=== PATIENT | female | born 1985 | race Caucasian/White ===

== ENCOUNTER 2022-07-04 05:33 | Outpatient (CLI) | payer MEDICAID ==
[~2022-07-04] VITALS: Ht 167.7 cm; Wt 90.9 kg
== END 2022-07-08 13:58 | disposition home or self-care (01) ==
LOC: PREOP 05:33
PROVIDERS: ATTEND Otolaryngology Otolaryngology/Facial Plastic Surgery
DX: Z01.818 Encounter for other preprocedural examination (principal)

== ENCOUNTER 2022-07-12 06:39 | Day surgery (SDC) | payer MEDICAID ==
[2022-07-12] VITALS (11 sets, daily range): BP systolic 145–178; BP diastolic 93–114
[~2022-07-12] VITALS: Ht 167.7 cm; Wt 90.9 kg
[2022-07-12] MEDS ORDERED: LACTATED RINGERS 1,000 ML IV PRN (06:45)
--- NOTE | 2022-07-12 07:00 | Progress Note-Pre Operative ---
Pre-Operative Progress Note Date of Available H&P: Jul 12, 2022 Date H&P Reviewed: Jul 12, 2022 Time H&P Reviewed: 07:00 History & Physical: H&P Reviewed, Patient Examed, No changes noted Changes from last HP none Pre-Operative Diagnosis: Rec Tons/ Chronic Tonsil Stones DAMION FU MD Jul 12, 2022 07:00
--- NOTE | 2022-07-12 07:01 | Progress Note-Post Operative ---
Post-Operative Progess Note Surgeon (s)/Hand Stitcher (s) Surgeon DAMION FU MD Hand Stitcher n/a Pre-Operative Diagnosis Rec Tons/ Chronic Tonsil Stones Post-Operative Diagnosis same Post-Op Procedure Note Date of Procedure: Jul 12, 2022 Name of Procedure Performed: Tonsillectomy Description & Findings Description and Findings: n/a Anesthesia Type get Estimated Blood Loss minimal Packing none. Specimen(s) collected/removed tonsils DAMION FU MD Jul 12, 2022 07:01
[2022-07-12 07:15] LABS: BASOPHILS % (AUTO) 0 % (0-10); EOSINOPHILS # (AUTO) 0.1 10^3/uL (0.0-0.3); EOSINOPHILS % (AUTO) 1 % (0-10); HEMATOCRIT 41 % (35-52); HEMOGLOBIN 13.8 g/dL (11.5-16.0); LYMPHOCYTES # (AUTO) 1.6 10^3/uL (1.0-4.0); LYMPHOCYTES % (AUTO) 26 % (12-44); MEAN CORPUSCULAR HEMOGLOBIN 30 pg (25-34); MEAN CORPUSCULAR HGB CONC 34 g/dL (32-36); MEAN CORPUSCULAR VOLUME 89 fL (80-99); MEAN PLATELET VOLUME 10.5 fL (9.0-12.2); MONOCYTES # (AUTO) 0.5 10^3/uL (0.0-1.0); MONOCYTES % (AUTO) 8 % (0-12); NEUTROPHILS # (AUTO) 4.1 10^3/uL (1.8-7.8); NEUTROPHILS % (AUTO) 64 % (42-75); PLATELET COUNT 298 10^3/uL (130-400); WHITE BLOOD COUNT 6.4 10^3/uL (4.3-11.0)
[2022-07-12] MEDS ORDERED: NS IV 1000 ML 1,000 ML IV SCH (07:15)
[2022-07-12] MEDS ORDERED: APAP 325 MG/10.15 ML LIQ (TYLENOL) UDC PO PRN (07:15)
[2022-07-12] MEDS ORDERED: MIDAZOLAM 2 MG/2 ML (VERSED) VIAL ONE ×2 (07:22→07:45)
[2022-07-12] MEDS ORDERED: MIDAZOLAM 2 MG/2 ML (VERSED) VIAL IV ONE (07:30)
[2022-07-12] MEDS ORDERED: fentaNYL INJ 100 MCG/2 ML AMP ONE (07:45)
[2022-07-12] MEDS ORDERED: proPOfol 200 MG/20 ML (DIPRIVAN) VIAL IV ONE (07:59)
[2022-07-12] MEDS ORDERED: LIDOCAINE PF 2% 5 ML (XYLOCAINE) VIAL ONE (07:59)
[2022-07-12] MEDS ORDERED: SEVOFLURANE (ULTANE) 15 ML INHAL SOLN ONE (07:59)
[2022-07-12] MEDS ORDERED: ONDANSETRON 4 MG/2 ML (SDV) Z0FRAN ONE (07:59)
[2022-07-12] MEDS ORDERED: ROCURONIUM 50 MG/5 ML (ZEMURON) VIAL IV ONE (07:59)
--- NOTE | 2022-07-12 08:17 | Anesthesia-General Post-Op ---
General Patient Condition Mental Status/LOC: Same as Preop Cardiovascular: Satisfactory Nausea/Vomiting: Absent Respiratory: Satisfactory Pain: Controlled Complications: Absent Post Op Complications Complications None Follow Up Care/Instructions Patient Instructions None needed. Anesthesia/Patient Condition Patient Condition Patient is doing well, no complaints, stable vital signs, no apparent adverse anesthesia problems. No complications reported per nursing. BRANDYN CHAMBERS CRNA Jul 12, 2022 08:17
[2022-07-12] MEDS ORDERED: fentaNYL INJ 100 MCG/2 ML AMP IVP ONE (08:30)
[2022-07-12] MEDS ORDERED: HYDROmorphone 2 MG/ML VIAL (DILAUDID) IV ONE (08:30)
[2022-07-12] MEDS ORDERED: ONDANSETRON 4 MG/2 ML (SDV) Z0FRAN IVP PRN (08:30)
[2022-07-12] MEDS ORDERED: AZIT200S47 PO (08:34)
[2022-07-12] MEDS ORDERED: OXYCODONE PO (08:34)
[2022-07-12] MEDS ORDERED: TETRACAINESUCKERS MT (08:34)
[2022-07-12] MEDS ORDERED: DEXAINTSOL PO (08:34)
[2022-07-12] MEDS ORDERED: oxyCODONE 5 MG/5 ML ORAL SOLN (roxiCODONE) 5 ML UDC PO PRN (10:30)
== END 2022-07-12 11:15 | disposition home or self-care (01) ==
LOC: SDC 06:39
PROVIDERS: ATTEND Otolaryngology Otolaryngology/Facial Plastic Surgery
DX: J35.01 Chronic tonsillitis (principal); J35.8 Other chronic diseases of tonsils and adenoids; R19.6 Halitosis; Z28.310 Unvaccinated for COVID-19
CPT/HCPCS: 36415; 84703; 85025; 87081